=== PATIENT | male | born 1990 ===

== ENCOUNTER 2016-07-30 08:43 | Emergency (ER) | payer OTHER ==
[2016-07-30 08:50] VITALS: TEMP 98.2; O2SAT 99
[2016-07-30 09:26] VITALS: BP 122/70; PULSE 72; RESP 17
--- NOTE | 2016-07-30 11:30 | C.PDOC ---
History Of Present Illness 25 year old male presents to the ED with complaints of left ear pain and decreased hearing to the ear since yesterday. Patient states the pain radiates down to his neck and denies trauma, drainage, fever, or any other complaints at this time. Chief Complaint (Nursing): ENT Problem History Per: Patient History/Exam Limitations: None Onset/Duration Of Symptoms: Days Current Symptoms Are (Timing): Still Present Severity: Mild Past Medical History Reviewed: Historical Data, Nursing Documentation, Vital Signs Vital Signs: Last Vital Signs Temp 98.2 F 07/30/16 08:48 Pulse 72 07/30/16 09:25 Resp 17 07/30/16 09:25 BP 122/70 07/30/16 09:25 Pulse Ox 99 07/30/16 11:34 - Medical History PMH: No Chronic Diseases Family History: States: Unknown Family Hx - Social History Hx Alcohol Use: Yes Hx Substance Use: No Review Of Systems Except As Marked, All Systems Reviewed And Found Negative. Constitutional: Negative for: Fever, Chills ENT: Positive for: Ear Pain (+Left ear pain radiating to left neck). Negative for: Ear Discharge, Throat Pain Respiratory: Negative for: Cough Physical Exam - Physical Exam Appears: Non-toxic, No Acute Distress Skin: Normal Color, Warm, Dry Head: Atraumatic, Normacephalic Eye(s): bilateral: Normal Inspection Ear(s): Left: TM Erythema, TM Dull, Other (+Left pinna tender with movement + Light reflex ), Right: Normal Nose: Normal Oral Mucosa: Moist Throat: Normal, No Erythema, No Exudate Neck: Supple, No Other (No mastoid tenderness) Lymphatic: No Adenopathy Chest: Symmetrical Respiratory: No Accessory Muscle Use Extremity: Normal ROM Neurological/Psych: Oriented x3, Normal Speech, Normal Cognition ED Course And Treatment O2 Sat by Pulse Oximetry: 99 (Room air) Pulse Ox Interpretation: Normal Progress Note: Patient treated with Motrin. Rx given and patient advised follow up with the clinic. Disposition - Disposition Referrals: [facility] [Outside] [facility] [Outside] Disposition: HOME/ ROUTINE Disposition Time: 09:20 Condition: GOOD Prescriptions: Amoxicillin [Amoxil 500 mg Cap] 500 mg PO Q8 #21 cap Ibuprofen [Motrin] 600 mg PO Q6 PRN #20 tab PRN Reason: Pain, Moderate (4-7) Instructions: Otitis Media (ED) Forms: Work Excuse - Clinical Impression Clinical Impression: Otitis media, Otitis externa - Scribe Statement The provider has reviewed the documentation as recorded by the Scribe Deonte Laguerre. Provider Attestation: All medical record entries made by the Scribe were at my direction and personally dictated by me. I have reviewed the chart and agree that the record accurately reflects my personal performance of the history, physical exam, medical decision making, and the department course for this patient. I have also personally directed, reviewed, and agree with the discharge instructions and disposition.
== END 2016-07-30 09:26 | disposition home or self-care (01) ==
LOC: C.ER 08:43
DX: H66.92 Otitis media, unspecified, left ear (principal); H60.92 Unspecified otitis externa, left ear

== ENCOUNTER 2016-07-30 14:44 | Inpatient (IN) | payer OTHER ==
--- NOTE | 2016-07-30 16:39 | CT ---
PROCEDURE: CT OF THE TEMPORAL BONES WITHOUT CONTRAST HISTORY: r/o left-sided mastoiditis COMPARISON: None available. TECHNIQUE: High resolution axial images of the temporal bones were obtained. Coronal and sagittal reformats were generated. Radiation dose: Total exam DLP = 740.70 mGy-cm. This CT exam was performed using one or more of the following dose reduction techniques: Automated exposure control, adjustment of the mA and/or kV according to patient size, and/or use of iterative reconstruction technique. FINDINGS: RIGHT TEMPORAL BONE: RIGHT MIDDLE EAR: Normal. RIGHT INNER EAR: Cochlea: Normal. Semicircular canals: Normal. RIGHT MASTOID AIR CELLS: Normal. RIGHT INTERNAL AUDITORY CANAL: Normal. RIGHT EXTERNAL AUDITORY CANAL: Normal. RIGHT VESTIBULAR AND COCHLEAR AQUEDUCT: Normal. OTHER FINDINGS: None. LEFT TEMPORAL BONE: LEFT MIDDLE EAR: There is minimal soft tissue in the Prussak's space and hypotympanum. LEFT INNER EAR: Cochlea: Normal. Semicircular canals: Normal. LEFT MASTOID AIR CELLS: There is abnormal soft tissue in the posterior superior mastoid air cells. There is a moderate left mastoid effusion. There is preservation of internal mastoid septations. LEFT INTERNAL AUDITORY CANAL: Normal. LEFT EXTERNAL AUDITORY CANAL: There is abnormal soft in the deep external auditory canal and thickening of the tympanic membrane. LEFT VESTIBULAR AND COCHLEAR AQUEDUCTS: Normal. OTHER FINDINGS: There is severe mucoperiosteal thickening in the right ethmoid air cells and moderate polypoid mucosal thickening in the right maxillary sinus with a superimposed fluid level. The remaining included paranasal sinuses are clear. IMPRESSION: 1. Findings are most compatible with left sided acute and/ or chronic mastoiditis. Minimal soft tissue in the deep left external auditory canal with thickening of the tympanic membrane, soft tissue in the hypotympanum and Prussak's space could represent acute/chronic otitis externa and otitis media. No evidence of erosion of the mastoid septations or ossicles to suggest cholesteatoma. 2. Suspect acute right maxillary sinusitis.
[2016-07-30] MEDS ORDERED: Piperacillin/Tazobact 3.375 gm 100 ML IVPB STA (16:55)
[2016-07-30] MEDS ORDERED: cefTRIAXone IV 1 gm in Dextros 50 ML IVPB ONE (17:25)
[2016-07-30 17:26] LABS: BASO % 0.5 % (0.0-2.0); EOS # 0.1 K/uL (0.0-0.7); EOS % 1.5 % (0.0-4.0); HEMATOCRIT 43.6 % (35.0-51.0); LYMPH # 2.3 K/uL (1.0-4.3); LYMPH % 28.2 % (20.0-40.0); MEAN CELL VOLUME 96.5 fL (80.0-94.0); MEAN CORPUSCULAR HEMOGLOBIN 32.8 pg (27.0-31.0); MEAN PLATELET VOLUME 8.1 fL (7.2-11.7); MONO # 0.9 K/uL (0.0-0.8); MONO % 11.4 % (0.0-10.0); RED CELL DISTRIBUTION WIDTH 13.6 % (11.5-14.5); WHITE BLOOD COUNT 8.2 K/uL (4.8-10.8)
[2016-07-30 17:30] LABS: CHLORIDE 100 mmol/L (98-107); POTASSIUM 4.2 mmol/L (3.6-5.2); SODIUM 138 mmol/L (132-148)
[2016-07-30 17:32] LABS: GFR AFRICAN-AMERICAN > 60
[2016-07-30 17:33] LABS: ALB/GLOB RATIO 1.3 (1.0-2.1); ALKALINE PHOSPHATASE 70 U/L (38-126); ALT/SGPT 31 U/L (21-72); AST/SGOT 32 U/L (17-59); BILIRUBIN,TOTAL 0.6 mg/dL (0.2-1.3); BLOOD UREA NITROGEN 9 mg/dL (9-20); CALCIUM 8.8 mg/dl (8.6-10.4); CARBON DIOXIDE 23 mmol/L (22-30); GLUCOSE,RANDOM 98 mg/dL (75-110)
[2016-07-30] MEDS ORDERED: Sodium Chloride 0.9% 1,000 ML IV ONE (17:33)
[2016-07-30] MEDS ORDERED: Dexamethasone 4 mg/1 ml ONE (17:54)
--- NOTE | 2016-07-30 18:04 | C.PDOC ---
History Of Present Illness 25 year old male presents to the ED for the second time for persistent pain to his left ear. Patient states he noticed some blood from the left ear and denies trauma, inserting a foreign object, fever, or any other complaints at this time Chief Complaint (Nursing): ENT Problem History Per: Patient History/Exam Limitations: None Onset/Duration Of Symptoms: Days Current Symptoms Are (Timing): Still Present Quality (Ear): Discharge Severity: Mild Past Medical History Reviewed: Historical Data, Nursing Documentation, Vital Signs Vital Signs: Last Vital Signs Temp 97.7 F 07/31/16 00:00 Pulse 56 L 07/31/16 00:00 Resp 20 07/31/16 00:00 BP 119/71 07/31/16 00:00 Pulse Ox 97 07/31/16 00:00 - Medical History PMH: No Chronic Diseases Family History: States: Unknown Family Hx - Social History Hx Alcohol Use: Yes Hx Substance Use: No Review Of Systems Except As Marked, All Systems Reviewed And Found Negative. Constitutional: Negative for: Fever, Chills ENT: Positive for: Ear Pain, Ear Discharge (+Blood). Negative for: Throat Pain , Throat Swelling Respiratory: Negative for: Cough Physical Exam - Physical Exam Appears: Non-toxic, No Acute Distress Skin: Normal Color, Warm, Dry Head: Atraumatic, Normacephalic Eye(s): bilateral: Normal Inspection Ear(s): Left: Other (+Fluid in canal, TM not visualized. +Small amount of blood seen, no active bleeding. +Tenderness to the pinna), Right: Normal Nose: Normal Oral Mucosa: Moist, No Other (No mastoid tenderness) Throat: Normal, No Erythema, No Exudate Neck: Normal ROM, Supple Chest: Symmetrical Respiratory: No Accessory Muscle Use Extremity: Normal ROM Neurological/Psych: Oriented x3, Normal Speech, Normal Cognition ED Course And Treatment - Laboratory Results Result Diagrams: 07/30/16 17:19 07/30/16 17:19 O2 Sat by Pulse Oximetry: 98 (Room air) Pulse Ox Interpretation: Normal - CT Scan/US CT Mastoids w/o contrast Other Rad Studies (CT/US): Read By Radiologist, Radiology Report Reviewed CT/US Interpretation: FINDINGS: RIGHT TEMPORAL BONE: RIGHT MIDDLE EAR: Normal. RIGHT INNER EAR: Cochlea: Normal. Semicircular canals: Normal. RIGHT MASTOID AIR CELLS: Normal. RIGHT INTERNAL AUDITORY CANAL: Normal. RIGHT EXTERNAL AUDITORY CANAL: Normal. RIGHT VESTIBULAR AND COCHLEAR AQUEDUCT : Normal. OTHER FINDINGS: None. LEFT TEMPORAL BONE: LEFT MIDDLE EAR: There is minimal soft tissue in the Prussak's space and hypotympanum. LEFT INNER EAR: Cochlea: Normal. Semicircular canals: Normal. LEFT MASTOID AIR CELLS: There is abnormal soft tissue in the posterior superior mastoid air cells. There is a moderate left mastoid effusion. There is preservation of internal mastoid septations. LEFT INTERNAL AUDITORY CANAL: Normal. LEFT EXTERNAL AUDITORY CANAL: There is abnormal soft in the deep external auditory canal and thickening of the tympanic membrane. LEFT VESTIBULAR AND COCHLEAR AQUEDUCTS: Normal. OTHER FINDINGS: There is severe mucoperiosteal thickening in the right ethmoid air cells and moderate polypoid mucosal thickening in the right maxillary sinus with a superimposed fluid level. The remaining included paranasal sinuses are clear. IMPRESSION: 1. Findings are most compatible with left sided acute and/ or chronic mastoiditis. Minimal soft tissue in the deep left external auditory canal with thickening of the tympanic membrane, soft tissue in the hypotympanum and Prussak's space could represent acute/chronic otitis externa and otitis media. No evidence of erosion of the mastoid septations or ossicles to suggest cholesteatoma. 2. Suspect acute right maxillary sinusitis. Progress Note: CT Mastoids w/o contrast and Blood work ordered and reviewed. Patient treated with Morphine, Zosyn, Rocephine, Vancomycin, and IV fluids. Case discussed with Dr. Rhoades who recommended admission and antibiotics. Case discussed with Dr. Evans who agreed with plan and admission. Disposition - Disposition Disposition: HOSPITALIZED Disposition Time: 16:30 Condition: STABLE - Clinical Impression Clinical Impression: Otitis externa, Otitis media, Mastoiditis of left side - Scribe Statement The provider has reviewed the documentation as recorded by the Scribe Deonte Laguerre. Provider Attestation: All medical record entries made by the Scribe were at my direction and personally dictated by me. I have reviewed the chart and agree that the record accurately reflects my personal performance of the history, physical exam, medical decision making, and the department course for this patient. I have also personally directed, reviewed, and agree with the discharge instructions and disposition.
[2016-07-30] MEDS ORDERED: HYDROmorphone 0.5 mg/0.5 ml ISec IVP PRN (19:48)
[2016-07-30] MEDS: MethylPREDNISolone 40 mg Vial IVP SCH (21:39)
[2016-07-30] MEDS ORDERED: Pneumococcal 23-Valent Vaccine IM ONE (22:40)
[2016-07-30] MEDS ORDERED: Influenza Virus Vaccine 45 mcg/0.5 ml Syr IM ONE (23:04)
[2016-07-31 08:12] LABS: HEMATOCRIT 44.6 % (35.0-51.0); MEAN CELL VOLUME 98.2 fL (80.0-94.0); MEAN CORPUSCULAR HEMOGLOBIN 32.6 pg (27.0-31.0); MEAN CORPUSCULAR HGB CONC 33.2 g/dL (33.0-37.0); MEAN PLATELET VOLUME 8.9 fL (7.2-11.7); RED CELL DISTRIBUTION WIDTH 13.4 % (11.5-14.5); WHITE BLOOD COUNT 7.8 K/uL (4.8-10.8)
[2016-07-31 09:01] LABS: THYROID STIMULATING HORMONE 0.22 mIU/L (0.46-4.68)
--- NOTE | 2016-07-31 09:26 | CON ---
DATE: 07/31/2016 REASON FOR CONSULTATION: Mastoiditis/otitis media. HISTORY OF PRESENT ILLNESS: This is a 25-year-old male with a multiple-day history of left ear pain. The patient presented to the ER with left ear pain, which was moderate to severe in intensity, cons tant. There was also some hearing loss and discharge on the left side. The patient had a CAT scan d one, which revealed partial opacification of the left mastoid air cells as well as partial opacificat ion of the left middle ear space with a possible mass in the mastoid air cells. PAST MEDICAL HISTORY: As noted on the chart by me. MEDICATIONS: As noted on the chart by me. PHYSICAL EXAMINATION: HEAD: Atraumatic, normocephalic. FACE: Good facial movements bilaterally. CONSTITUTIONAL: Well-developed, well-nourished. COMMUNICATION: Communicates very appropriately. EXTERNAL NOSE AND EARS: No masses, no lesions, no erythema, no edema. INTERNAL NOSE: Deviated septum, no masses, no lesions, no erythema, no edema. EARS: Discharge in the left ear canal. TM cannot be well visualized. ORAL CAVITY AND OROPHARYNX: No masses, no lesions, no erythema, no edema. LIPS AND GUMS: No masses, no lesions, no erythema, no edema. NECK: Supple. THYROID: No thyromegaly, no goiter. LYMPH NODES: No lymphadenopathy of the neck. ASSESSMENT: 1. Deviated septum. 2. Mastoiditis. 3. Otitis media. It should be noted that today the patient is doing better. He feels that his pain has greatly improv ed. PLAN: To have the patient discharged home from my point of view. The patient can follow up as an ou tpatient in my office to have the ears cleaned and have the TM inspected and would also send him to a neurootologist to look at the CAT scans regarding the possible mass in the mastoids. Ge Rhoades MD cc: [id number] TT: 07/31/2016 09:25:08 Confirmation # [id number] Dictation # [id number]
[2016-07-31] MEDS ORDERED: cefTRIAXone IV 1 gm in Dextros 50 ML IVPB SCH (10:00)
[2016-07-31] MEDS: MethylPREDNISolone 40 mg Vial IVP SCH ×2 (11:10→22:21)
--- NOTE | 2016-07-31 16:12 | CP.PCM.CON ---
History of Present Illness - History of Present Illness History of Present Illness: INFECTIOUS DISEASE CONSULT; HPI; 25-year-old male with no significant past medical history who presented to the ER with history of left ear pain and bloody discharge. Patient was given some by mouth antibiotics and ibuprofen for pain but patient states he noticed blood from his left ear and came back to the ER. Patient also complaining of left- sided headache and left-sided pain. Patient had a CAT scan done which revealed left-sided acute on chronic mastoiditis, otitis externa and otitis media. Patient also showed acute right maxillary sinusitis. No erosions off mastoid septations was seen and no cholesteatoma. Patient was started on IV Rocephin 1 g once a day daily. Vancomycin 1 g every 24 hourly. Infectious disease consultation requested by PMD for further evaluation. PATIENT DENIES HISTORY OF SORE THROAT OR PREVIOUS SUCH EPISODE. PATIENT DENIES ANY FEVER OR CHILLS. PATIENT ALSO DENIES POSTNASAL DRIP BUT STATES HAS SEASONAL ALLERGIES.. PATIENT WORKS IN CONSTRUCTION. PATIENT DOES ADMIT TO USING Q-TIPS FOR CLEANING HIS EAR. PMH: No Chronic Diseases Family History: States: Unknown Family Hx - Social History Hx Alcohol Use: Yes Hx Substance Use: No ALLERGIES; NKA. IMMUNIZATION; NOT UP-TO-DATE. Review of Systems - Constitutional Constitutional: Headache. absent: Fever - EENT Eyes: absent: Blurred Vision, Floaters Nose/Mouth/Throat: Nasal Congestion. absent: Post Nasal Drip, Sinus Pain, Hoarsness, Sore Throat, Throat Swelling - Cardiovascular Cardiovascular: absent: Chest Pain, Dyspnea - Respiratory Respiratory: absent: Hemoptysis, Chest Congestion - Gastrointestinal Gastrointestinal: absent: Diarrhea, Melena - Genitourinary Genitourinary: absent: Dysuria, Hematuria - Neurological Neurological: Abnormal Hearing (LEFT EAR.), Headaches. absent: Dizziness, Vertigo - Hematologic/Lymphatic Hematologic: absent: As Per HPI, Easy Bleeding, Easy Bruising, Lymphadenopathy Past Patient History - Past Medical History & Family History Past Medical History?: Yes - Past Social History Smoking Status: Heavy Smoker > 10 Cigarettes Daily - MUSCULOSKELETAL/RHEUMATOLOGICAL Hx Falls: No - PSYCHIATRIC Hx Substance Use: No - SURGICAL HISTORY Hx Surgeries: Yes Other/Comment: Right wrist fracture - ANESTHESIA Hx Anesthesia: Yes Hx Anesthesia Reactions: No Meds Allergies/Adverse Reactions: Allergies Allergy/AdvReac Type Severity Reaction Status Date / Time No Known Allergies Allergy Verified 07/30/16 09:17 - Medications Medications: Current Medications Acetaminophen (Tylenol 325mg Tab) 650 mg PO Q4H PRN PRN Reason: pain fever Last Admin: 07/30/16 20:15 Dose: 650 mg Famotidine (Pepcid) 40 mg PO DAILY [facility] Last Admin: 07/31/16 11:10 Dose: 40 mg Hydromorphone HCl (Dilaudid) 0.5 mg IVP Q4H PRN PRN Reason: Pain, Mild (1-3) Last Admin: 07/30/16 21:46 Dose: 0.5 mg Vancomycin/Sodium Chloride (Vancocin) 200 mls @ 166.7 mls/hr IVPB Q24H [facility] Ceftriaxone Sodium 1 gm/ (Sodium Chloride) 100 mls @ 100 mls/hr IVPB Q12H [facility] Last Admin: 07/31/16 12:00 Dose: 100 mls/hr Methylprednisolone (Solu-Medrol) 40 mg IVP Q12 [facility] Last Admin: 07/31/16 11:10 Dose: 40 mg Physical Exam - Constitutional Appears: No Acute Distress - Head Exam Head Exam: NORMAL INSPECTION - Eye Exam Eye Exam: EOMI, PERRL. absent: Scleral icterus - ENT Exam ENT Exam: Mucous Membranes Moist (BILATERAL TONSILS ENLARGED AND CONGESTED. LEFT EAR CLOTTED BLOOD. VISUALIZATION OFF THETYMPANIC MEMBRANE COULD NOT BE SEEN SECONDARY TO OLD BLOOD.) - Neck Exam Neck exam: Positive for: Normal Inspection. Negative for: Meningismus - Respiratory Exam Respiratory Exam: Clear to Auscultation Bilateral - Cardiovascular Exam Cardiovascular Exam: REGULAR RHYTHM, +S1, +S2 - GI/Abdominal Exam GI & Abdominal Exam: Normal Bowel Sounds, Soft. absent: Organomegaly - Extremities Exam Extremities exam: Positive for: pedal pulses present (MULTIPLE TATTOO WANG ON ARMS SEEN.). Negative for: calf tenderness, pedal edema - Neurological Exam Neurological exam: Alert, CN II-XII Intact, Oriented x3, Reflexes Normal - Psychiatric Exam Psychiatric exam: Normal Mood - Skin Skin Exam: Normal Color, Warm Results - Vital Signs Recent Vital Signs: Last Vital Signs Temp 97.7 F 07/31/16 07:52 Pulse 57 L 07/31/16 07:52 Resp 20 07/31/16 07:52 BP 135/89 07/31/16 07:52 Pulse Ox 98 07/31/16 07:52 - Labs Result Diagrams: 07/31/16 08:02 07/30/16 17:19 Labs: Laboratory Results - last 24 hr 07/31/16 08:02 WBC 7.8 RBC 4.54 Hgb 14.8 Hct 44.6 MCV 98.2 H MCH 32.6 H MCHC 33.2 RDW 13.4 Plt Count 311 MPV 8.9 ESR 18 H Hemoglobin A1c 5.6 C-React Prot High Sens > 15.00 H Triglycerides 50 Cholesterol 227 H LDL Cholesterol Direct 130 H HDL Cholesterol 68 TSH 3rd Generation 0.22 L - Imaging and Cardiology CT mastoid without contrast Status: Report reviewed by me (see full report.) Assessment & Plan (1) Mastoiditis of left side Status: Acute (2) Otitis externa Status: Acute (3) Otitis media Status: Acute (4) Acute maxillary sinusitis, unspecified Status: Acute - Assessment and Plan (Free Text) Plan: PLAN; PANCULTURES. THROAT CULTURE. MRSA SCREEN. LEFT EAR CULTURE TAKEN BY MYSELF TODAY 07/31/16. ESR,CRP. ASO TITERS AGREE WITH iv ROCEPHIN 1 G EVERY 12 HOURLY FOR PSEUDOMONAL COVERAGE. CONTINUE iv VANCOMYCIN 1 G EVERY 24 HOURLY 07/30/16. fOLLOW-UP vANCO TROUGH LEVEL 30 MINUTES PRIOR TO THE THIRD DOSE AND NOTIFY ME. PATIENT SEEN BY ENT. CASE DISCUSSED WITH DR ROBBINS -LOTTIE . AWAIT CULTURES TO ADJUST ANTIBIOTICS. WILL FOLLOW THE PATIENT WHILE IN HOSPITAL. tHANK YOU
[2016-07-31] MEDS: Vancomycin 1 gm/NS 200 ml 200 ML IVPB SCH (17:02)
[2016-08-01 07:48] VITALS: RESP 20; O2SAT 99
--- NOTE | 2016-08-01 08:00 | HP ---
CHIEF COMPLAINT: Left ear pain, blood from the left ear. HISTORY OF PRESENT ILLNESS: The patient is a 25-year-old male with no significant past medical history, came to Emergency Room of [facility] with pain in the left ear. He was given antibiotics, sent home. Then, he noticed he was bleeding from the ear. Then, he came back in to the Emergency Room. The patient states he noticed some blood from the left ear. Denies trauma, insertion of foreign object, fever, nausea, vomiting, diarrhea. No hematuria, no hematochezia. We admitted the patient. ENT consult called. ID consult called. The patient is seen by Dr. souza, ent and finally by Dr. Jessica Henry. She did cultures and patient is started on the antibiotics. PAST MEDICAL HISTORY: No chronic disease. FAMILY HISTORY: Noncontributory. SOCIAL HISTORY: No smoking, no substance abuse, alcohol use yes. REVIEW OF SYSTEMS: The patient seen and examined on the bedside, in the room. Girlfriend was sitting on the bedside also. Length of time discussion done. All questions answered. The patient does not have fever, no chills. Even ear pain is getting a little bit better. PHYSICAL EXAMINATION: VITAL SIGNS: Temperature 98.2, pulse 86, blood pressure 125/83, respiratory rate 22. HEENT: Head normocephalic, atraumatic. Eyes: PERRLA. Extraocular muscles intact. Conjunctivae pink. Eyelids unremarkable. Nose patent. Mucous membranes moist. NECK: Supple. No carotid bruit, no JVD, no thyromegaly. CHEST: Bilaterally symmetrical. HEART: S1, S2 positive. LUNGS: Clear to auscultation. ABDOMEN: Soft. Bowel sounds positive. No organomegaly. EXTREMITIES: No edema, no cyanosis. NEUROLOGIC: The patient is awake, alert, moving all 4 extremities. No focal deficit. LABORATORIES: White blood cells 7.8, hemoglobin 14.8, hematocrit 44.6, platelets 311. Chemistry: Sodium 138, potassium 4.2, BUN 9, creatinine 0.7. C -reactive protein more than 15. Cholesterol 227, LDL 130. TSH is 0.22. ASSESSMENT AND PLAN: The patient is a 25-year-old male with hypercholesterolemia, hypothyroidism. Came with otalgia, otitis externa, mastoiditis of the left side. CAT scan done, otitis media, acute maxillary sinusitis, unspecified. Torres cultures done, throat culture done by Dr. Jessica Henry. Methicillin-resistant Staphylococcus aureus screening done. Left ear culture taken by Dr. Jessica Henry by herself on 07/31/2016. ESR, CRP ordered. ASO titer ordered. I started patient on Rocephin and she agreed with Rocephin and vancomycin. We will follow up vancomycin trough level. Length of time discussion done with Dr. Jessica Henry. I reviewed Dr. Jessica Henry's notes. I reviewed Dr. Ge Rhoades's notes also. According to Dr. Rhoades, patient has deviated septum, mastoiditis. According to ENT, we can discharge patient, follow up as outpatient, but CAT scan looks comfortable. Then, me and Dr. Jessica Henry decided to give at least a couple of days of IV antibiotics. The patient agreed with that treatment plan. According to CAT scan, there is severe mucoperiosteal thickening in the right ethmoid air cells and moderate polypoid mucosal thickening in the right maxillary sinus with superimposed fluid level. The remaining including paranasal sinuses are clear. Gastrointestinal and deep venous thrombosis prophylaxis. Repeat labs. We will follow up. Audrey Evans MD cc: [id number] TT: 08/01/2016 08:00:14 en MTDD
[2016-08-01] MEDS: MethylPREDNISolone 40 mg Vial IVP SCH ×2 (09:29→21:54)
--- NOTE | 2016-08-01 15:43 | CP.PCM.PN ---
Subjective - Date & Time of Evaluation Date of Evaluation: 08/01/16 Time of Evaluation: 15:43 - Subjective Subjective: afebrile Denies left ear pain. Denies headaches. Anxious to go home. Explained awaiting cultures to decide therapy. LABS CRP >15 ASO TITRE >200IU/ML ESR 18. THROAT CULTURE -NO BETA STREP GROUP A. Objective - Vital Signs/Intake and Output Vital Signs (last 24 hours): Temp Pulse Resp BP Pulse Ox 98.1 F 68 20 125/71 99 08/01/16 07:46 08/01/16 08:15 08/01/16 07:46 08/01/16 07:46 08/01/16 07:46 Intake and Output: 08/01/16 08/01/16 06:59 18:59 Intake Total 670 600 Balance 670 600 - Medications Medications: Current Medications Acetaminophen (Tylenol 325mg Tab) 650 mg PO Q4H PRN PRN Reason: pain fever Last Admin: 07/30/16 20:15 Dose: 650 mg Famotidine (Pepcid) 40 mg PO DAILY [facility] Last Admin: 08/01/16 09:29 Dose: 40 mg Hydromorphone HCl (Dilaudid) 0.5 mg IVP Q4H PRN PRN Reason: Pain, Mild (1-3) Last Admin: 07/30/16 21:46 Dose: 0.5 mg Vancomycin/Sodium Chloride (Vancocin) 200 mls @ 166.7 mls/hr IVPB Q24H [facility] Last Admin: 07/31/16 17:02 Dose: 166.7 mls/hr Ceftriaxone Sodium 1 gm/ (Sodium Chloride) 100 mls @ 100 mls/hr IVPB Q12H [facility] Last Admin: 08/01/16 11:02 Dose: 100 mls/hr Methylprednisolone (Solu-Medrol) 40 mg IVP Q12 [facility] Last Admin: 08/01/16 09:29 Dose: 40 mg - Labs Labs: 07/31/16 08:02 - Constitutional Appears: No Acute Distress - Head Exam Head Exam: NORMAL INSPECTION - Eye Exam Eye Exam: EOMI, PERRL - ENT Exam ENT Exam: Mucous Membranes Moist, Normal Oropharynx (Throat seems to be much improved and less congested. No exudates noted.) - Neck Exam Neck Exam: Normal Inspection. absent: Meningismus - Respiratory Exam Respiratory Exam: Clear to Ausculation Bilateral - Cardiovascular Exam Cardiovascular Exam: REGULAR RHYTHM, +S1, +S2 - GI/Abdominal Exam GI & Abdominal Exam: Soft, Normal Bowel Sounds. absent: Organomegaly - Extremities Exam Extremities Exam: Normal Capillary Refill. absent: Calf Tenderness, Pedal Edema - Neurological Exam Neurological Exam: Alert, Awake, CN II-XII Intact, Normal Gait, Oriented x3, Reflexes Normal - Psychiatric Exam Psychiatric exam: Normal Mood - Skin Skin Exam: Normal Color, Warm Assessment and Plan (1) Mastoiditis of left side Status: Acute (2) Otitis externa Status: Acute (3) Otitis media Status: Acute (4) Acute maxillary sinusitis, unspecified Status: Acute - Assessment and Plan (Free Text) Assessment: on iv ROCEPHIN 1 G EVERY 12 HOURLY FOR PSEUDOMONAL COVERAGE. CONTINUE iv VANCOMYCIN 1 G EVERY 24 HOURLY 07/30/16.increase dose to 1 g every 12 hourly as Vanco trough < 5. 08/01/16 FOLLOW-UP vANCO TROUGH LEVEL 30 MINUTES PRIOR TO THE THIRD DOSE AND NOTIFY ME. IF LEFT EAR CULTURE NEGATIVE, PATIENT CAN BE SWITCHED TO BY MOUTH AUGMENTIN 875 MG TWICE A DAY X FOR 14DAYS FOR L,OTITIS MEDIA/OTITIS EXTERNA AND LEFT MASTOIDITIS AND ALSO ACUTE MAXILLARY SINUSITIS. fOLLOW-UP WITH ENT OPD FOR FURTHER MANAGEMENT SUGGESTED BY ENT.
[2016-08-01] MEDS: Vancomycin 1 gm/NS 200 ml 200 ML IVPB SCH (17:50)
[2016-08-01] MEDS ORDERED: HYDROmorphone 0.5 mg/0.5 ml ISec IVP PRN (20:34)
--- NOTE | 2016-08-01 21:18 | PN ---
DATE: 08/01/2016 SUBJECTIVE: The patient seen and examined on the bedside. Looks comfortable. Pain is better. No n ausea, vomiting. No hematuria or hematochezia. No fever, no chills. No headache, no dizziness. No swelling of the leg. PHYSICAL EXAMINATION: VITAL SIGNS: Temperature 98.3, pulse 59, blood pressure 110/63, respiratory rate 20. HEENT: Head normocephalic, atraumatic. Eyes: PERRLA. Extraocular muscles intact. Conjunctivae pin k. Eyelids unremarkable. Nose patent. Mucous membranes moist. NECK: Supple. No carotid bruit, JVD or thyromegaly. CHEST: Bilaterally symmetrical. HEART: S1, S2 positive. LUNGS: Clear to auscultation. ABDOMEN: Soft. Bowel sounds present. No organomegaly. EXTREMITIES: No edema, no cyanosis. NEUROLOGIC: The patient is awake, alert and moving all 4 extremities. No focal deficits. MEDICATIONS: Ceftriaxone, Dilaudid, Pepcid, Solu-Medrol, Tylenol, vancomycin. LABORATORY DATA: White blood cells 7.8, hemoglobin 14.8, hematocrit 44.6, platelets 311. ASSESSMENT AND PLAN: The patient is a 25-year-old male with hypercholesterolemia, mastoiditis of the left side, otitis externa, otitis media, acute maxillary sinusitis unspecified, hypercholesterolemia . Getting Dilaudid for pain, Pepcid for GI prophylaxis, ceftriaxone for his ear infection. Getting Solu-Medrol, tapering dose. Getting vancomycin. Will start Lipitor. Will follow up. Audrey Evans MD cc: [id number] TT: 08/01/2016 21:17:36 Confirmation # [id number] Dictation # [id number] marco a
[2016-08-02] MEDS ORDERED: Vancomycin 1 gm/NS 200 ml 200 ML IVPB SCH (06:00)
[2016-08-02 09:07] VITALS: BP 129/78; PULSE 48; TEMP 97.7
[2016-08-02] MEDS: MethylPREDNISolone 40 mg Vial IVP SCH (11:01)
--- NOTE | 2016-08-02 12:13 | CP.PCM.PN ---
Subjective - Date & Time of Evaluation Date of Evaluation: 08/02/16 Time of Evaluation: 11:00 - Subjective Subjective: Alert, oriented, NAD. Objective - Vital Signs/Intake and Output Vital Signs (last 24 hours): Temp Pulse Resp BP Pulse Ox 97.7 F 48 L 20 129/78 99 08/02/16 08:00 08/02/16 08:00 08/02/16 08:00 08/02/16 08:00 08/02/16 08:00 Intake and Output: 08/02/16 08/02/16 06:59 18:59 Intake Total 1250 Balance 1250 - Medications Medications: Current Medications Acetaminophen (Tylenol 325mg Tab) 650 mg PO Q4H PRN PRN Reason: pain fever Last Admin: 07/30/16 20:15 Dose: 650 mg Famotidine (Pepcid) 40 mg PO DAILY [facility] Last Admin: 08/02/16 11:01 Dose: 40 mg Hydromorphone HCl (Dilaudid) 0.25 mg IVP Q8H PRN PRN Reason: Pain, Mild (1-3) Ceftriaxone Sodium 1 gm/ (Sodium Chloride) 100 mls @ 100 mls/hr IVPB Q12H VON Last Admin: 08/02/16 11:01 Dose: 100 mls/hr Vancomycin/Sodium Chloride (Vancocin) 200 mls @ 133 mls/hr IVPB Q12H VON Stop: 08/07/16 06:01 Last Admin: 08/02/16 06:05 Dose: 133 mls/hr Methylprednisolone (Solu-Medrol) 20 mg IVP Q12 VON Last Admin: 08/02/16 11:01 Dose: 20 mg Rosuvastatin Calcium (Crestor) 10 mg PO HS VON Last Admin: 08/01/16 21:54 Dose: 10 mg - Labs Labs: 07/31/16 08:02 Assessment and Plan - Assessment and Plan (Free Text) Assessment: Patient is seen and examined. Alert, denies any pain. All the cultures negative. D/W DR Evans, discharge plan for today on augmentin for 14 days for acute maxillary sinusitis as per DR Henry. Advised to follow up with DR Rhoades in 1 week.
--- NOTE | 2016-08-21 10:35 | DS ---
CHIEF COMPLAINT: Left ear pain, blood from the left ear. HISTORY OF PRESENT ILLNESS: The patient is a 25-year-old male with no significant past medical history, came to the Emergency Room at [facility] with left ear pain. The patient was given antibiotic, sent home, then he noticed that he was bleeding from the ear. Then he came back to the Emergency Room and the patient stated that he noted some blood from the left ear. Denies trauma, injury, insertion of foreign body. No fever, no chills, no nausea, vomiting, or diarrhea. No hematuria or hematochezia. We admitted the patient, called ENT consult, ID consult. The patient was seen by Dr. Rhoades, ENT, and Dr. Jessica Henry, ID. Did cultures. The patient was started on antibiotic. CAT scan of facial bones done. The patient improved, discharged on 08/02/2016, follow up with ENT and his own primary care physician. PAST MEDICAL HISTORY: Noncontributory. FAMILY HISTORY: Noncontributory. SOCIAL HISTORY: No smoking, no drugs, no ethanol. Alcohol use is socially as per patient. REVIEW OF SYSTEMS: The patient was seen and examined on the bedside on 2016. Looks comfortable. No nausea, vomiting, or diarrhea. No hematuria or hematochezia. No swelling of the leg. No chest pain, no palpitation, no blood from the ears. No fever, no chills. PHYSICAL EXAMINATION: VITAL SIGNS: Temperature 97.7, pulse is 48, blood pressure 129/78, respiratory rate 20. HEENT: Head normocephalic, atraumatic. Eyes: PERRLA. Extraocular muscles intact. Conjunctivae clear. Nose patent. Mucous membranes moist. NECK: Supple. No carotid bruit, JVD or thyromegaly. CHEST: Bilaterally symmetrical. HEART: S1, S2 positive. LUNGS: Clear to auscultation. ABDOMEN: Soft. Bowel sounds present. No organomegaly. EXTREMITIES: No edema, no cyanosis. NEUROLOGIC: The patient is awake, alert, moving all 4 extremities. No focal deficit. LABORATORY DATA: White blood cells 7.8, hemoglobin 14.8, hematocrit 44.6, platelets 311. Sodium 138, potassium 4.3, BUN 9, creatinine 0.7, GFR more than 60, cholesterol of 227, LDL 130. ASSESSMENT AND PLAN: The patient is a 25-year-old with hypercholesterolemia, mastoiditis of the left side, otitis externa, otitis media, acute maxillary sinusitis, unspecified, got Dilaudid for pain in the hospital, Pepcid for GI prophylaxis, ceftriaxone was given in the hospital, got Solu-Medrol low tapering dose, and got vancomycin and started him on Lipitor. Seen by Dr. Henry , infectious disease, and Dr. Rhoades, ENT. The patient was cleared by ENT, infectious disease for discharge. Follow up with ID and ENT as outpatient. All cultures are negative. Discussion done with SANDY Munoz. Given Augmentin for 14 days for acute maxillary sinusitis as per Dr. Henry. Advised to follow up with Dr. Rhoades in 1 week. We will follow up. Audrey Evans MD cc: [id number] TT: 08/21/2016 10:34:52 marco a [email or web address]
== END 2016-08-02 13:20 | disposition home or self-care (01) | DRG 153 ==
LOC: C.ER 14:44 → C.9E 17:40 → C.3T 18:41
PROVIDERS: ADMIT Internal Medicine; ATTEND Internal Medicine
DX: J01.00 Acute maxillary sinusitis, unspecified (principal); H92.20 Otorrhagia, unspecified ear; H70.12 Chronic mastoiditis, left ear; E78.00 Pure hypercholesterolemia, unspecified; J34.2 Deviated nasal septum; F17.210 Nicotine dependence, cigarettes, uncomplicated; E03.9 Hypothyroidism, unspecified; J30.2 Other seasonal allergic rhinitis; H66.92 Otitis media, unspecified, left ear; H60.92 Unspecified otitis externa, left ear